=== PATIENT | male | born 1990 | race Hispanic/Latino ===

== ENCOUNTER 2022-02-01 18:01 | Emergency (ER) | payer OTHER ==
[~2022-02-01] VITALS: Ht 170.2 cm; Wt 93.0 kg
[2022-02-01] MEDS ORDERED: LIDOCAINE HCL 1% 10 ML VIAL ONE (19:50)
[2022-02-01] MEDS ORDERED: ONDANSETRON 4MG INJ IVP ONE (20:00)
[2022-02-01] MEDS ORDERED: 0.9%NACL 1000ML 1,000 ML IV ONE (20:00)
[2022-02-01] MEDS ORDERED: MORPHINE 4 MG SYG IVP ONE (20:00)
[2022-02-01 20:19] LABS: BASOPHILS % (AUTO) 0.6 % (0.0-5.0); EOSINOPHILS % (AUTO) 0.8 % (0.0-8.0); HEMATOCRIT 46.3 % (42-54); LYMPHOCYTES % (AUTO) 19.8 % (21.0-51.0); MEAN CORPUSCULAR HEMOGLOBIN 30.5 pg (27.0-33.0); MEAN CORPUSCULAR HGB CONC 33.9 g/dL (32.0-36.0); MEAN CORPUSCULAR VOLUME 90.1 fL (79-99); MONOCYTES % (AUTO) 11.6 % (3.0-13.0); NEUTROPHILS % (AUTO) 66.9 % (40.0-77.0); PLATELET COUNT (AUTO) 309 K/uL (130-400); RED BLOOD CELL COUNT(AUTO) 5.14 MIL/uL (4.50-6.20); RED CELL DISTRIBUTION WIDTH 13.2 % (11.0-15.5); WHITE BLOOD COUNT (AUTO) 11.6 K/uL (4.8-10.8)
[2022-02-01 20:23] LABS: APPEARANCE,URINE CLOUDY (CLEAR); BILIRUBIN,URINE NEGATIVE (NEGATIVE); COLOR,URINE YELLOW (YELLOW); GLUCOSE, URINE (UA) NEGATIVE (NEGATIVE); KETONES,URINE NEGATIVE (NEGATIVE); LEUKOCYTE ESTERASE ,URINE NEGATIVE Leu/uL (NEGATIVE); NITRATE,URINE NEGATIVE (NEGATIVE); OCCULT BLOOD,URINE MODERATE (NEGATIVE); PROTEIN,URINE 70 mg/dL (NEGATIVE); UROBILINOGEN,URINE 0.2 mg/dL (0.2-1.0)
[2022-02-01 20:27] LABS: POTASSIUM 3.5 mmol/L (3.5-5.1)
[2022-02-01 20:32] LABS: ALBUMIN 4.1 g/dL (3.5-5.0); TOTAL PROTEIN, SERUM 9.5 g/dL (6.0-8.3); URIC ACID 8.5 mg/dL (2.6-7.2)
[2022-02-01 20:42] VITALS: BP 143/95
[2022-02-01 21:22] LABS: APPEARANCE BODY FLUID CLOUDY (CLEAR); SPECIMENTYPE,BODY FLUID SYNOVIAL
[2022-02-01 21:23] LABS: BODY FLUID RBC 0 /cu. mm.; BODY FLUID WBC 13272 /cu. mm.; COLOR,BODY FLUID YELLOW (LT YELLOW); TOTAL VOLUME,BODY FLUID 100 mL
[2022-02-01 21:23] LABS: MUCUS,URINE RARE LPF (None Seen)
[2022-02-01 21:25] LABS: BF LYMPHOCYTE 1 %
[2022-02-01] MEDS ORDERED: KETOROLAC 15MG/ML VIAL (15MG/ML) IV ONE (21:30)
[2022-02-01] MEDS ORDERED: NAPR500T6 PO (21:52)
[2022-02-02 09:36] LABS: CRYSTALS, SYNOVIAL FLUID SEE SEPARATE REPORT
== END 2022-02-01 22:26 | disposition home or self-care (01) ==
LOC: EDH 18:01
DX: M25.462 Effusion, left knee (principal); M10.9 Gout, unspecified
CPT/HCPCS: 99284; 20610; 96374; 96375; 96361; 84550; 80053; 85025; 89051; 87071; 87205; 83605; 89060; 81001; 36415; 73562; J7030; J2405; J2270; J3490; J1885